=== PATIENT | female | born 1975 | race Two or more races ===

== ENCOUNTER 2018-01-12 15:35 | Inpatient (IN) | payer OTHER ==
[~2018-01-12] VITALS: Ht 162.6 cm; Wt 88.7 kg
[2018-01-12 16:23] LABS: BASOPHILS # (AUTO) 0.06 x10^3/uL (0-0.1); BASOPHILS % (AUTO) 1 % (0-1); EOSINOPHILS # (AUTO) 0.09 x10^3/uL (0-0.4); EOSINOPHILS % (AUTO) 1 % (1-7); LYMPHOCYTES # (AUTO) 1.74 x10^3/uL (1-3.4); LYMPHOCYTES % (AUTO) 15 % (22-44); MD NO; MEAN CORPUSCULAR HEMOGLOBIN 23.2 pg (27.0-34.8); MEAN CORPUSCULAR HGB CONC 31.8 g/dL (32.4-35.8); MEAN CORPUSCULAR VOLUME 72.9 fL (80-100); MEAN PLATELET VOLUME 9.1 fL (7.4-10.4); MONOCYTES # (AUTO) 0.75 x10^3/uL (0.2-0.8); MONOCYTES % (AUTO) 6 % (2-9); NEUTROPHILS # (AUTO) 9.41 x10^3/uL (1.8-6.8); NEUTROPHILS % (AUTO) 78 % (42-75); PLATELET COUNT 235 x10^3/uL (130-400); RED BLOOD COUNT 5.51 x10^6/uL (3.82-5.3); RED CELL DISTRIBUTION WIDTH 15.9 % (9.6-15.2)
[2018-01-12 16:30] LABS: HCG UR SG 1.008 (1.003-1.030)
[2018-01-12 16:31] LABS: CULTURE INDICATED? YES; MICROSCOPIC INDICATED
[2018-01-12 16:47] LABS: ANION GAP 9 mmol/L (5-15); CALCIUM 8.5 mg/dL (8.5-10.1); CHLORIDE 108 mmol/L (98-107)
[2018-01-12 16:51] LABS: ALANINE AMINOTRANSFERASE 37 U/L (12-78); ALBUMIN 3.7 g/dL (3.4-5.0); ALKALINE PHOSPHATASE 65 U/L (45-117); BILIRUBIN,TOTAL 1.3 mg/dL (0.2-1.0); CREATININE 0.75 mg/dL (0.55-1.02); TOTAL PROTEIN 8.4 g/dL (6.4-8.2)
[2018-01-12] MEDS ORDERED: CEFTRIAXONE PMX 1GM/50ML 50 ML IV ONE (19:00)
[2018-01-12] MEDS ORDERED: CEFTRIAXONE PMX 1GM/50ML 50 ML ONE (19:06)
[2018-01-12 20:00] VITALS: BP 116/73
[2018-01-12] MEDS ORDERED: ONDANSETRON 2MG/ML, 2ML IVPush PRN (20:30)
[2018-01-12] MEDS ORDERED: ACETAMINOPHEN 325 MG TABLET PO PRN (20:30)
[2018-01-12] MEDS ORDERED: BISACODYL 10 MG SUPP PR PRN (20:30)
[2018-01-12] MEDS ORDERED: morphine SULFATE 10 MG/ML, 1ML IVPush PRN (20:30)
[2018-01-12] MEDS: SODIUM CHLORIDE 0.9% 1,000 ML IV SCH (21:09)
[2018-01-12] MEDS: CEFOTETAN PMX 1GM/50ML 50 ML IV SCH (21:11)
[2018-01-13 01:47] VITALS: BP 127/83
[2018-01-13 05:36] LABS: ALANINE AMINOTRANSFERASE 31 U/L (12-78); ALBUMIN 3.1 g/dL (3.4-5.0); ANION GAP 7 mmol/L (5-15); CALCIUM 8.7 mg/dL (8.5-10.1); CHLORIDE 111 mmol/L (98-107); CREATININE 0.65 mg/dL (0.55-1.02)
[2018-01-13 05:38] LABS: ALKALINE PHOSPHATASE 57 U/L (45-117); BILIRUBIN,TOTAL 1.1 mg/dL (0.2-1.0); TOTAL PROTEIN 6.9 g/dL (6.4-8.2)
[2018-01-13] MEDS ORDERED: MIDAZOLAM 1 MG/ML, 2ML ONE (05:42)
[2018-01-13] MEDS ORDERED: FENTANYL PF 100 MCG/2ML ONE ×2 (05:42→07:34)
[2018-01-13] MEDS ORDERED: SUCCINYLCHOLINE 20 MG/ML, 10ML ONE (05:42)
[2018-01-13] MEDS ORDERED: DEXAMETHASONE 4 MG/ML, 1ML ONE ×2 (05:42)
[2018-01-13] MEDS ORDERED: PROPOFOL 10 MG/ML, 20ML ONE (05:42)
[2018-01-13] MEDS ORDERED: ROCURONIUM 10MG/ML,5ML ONE (05:43)
[2018-01-13 05:53] LABS: BASOPHILS # (AUTO) 0.03 x10^3/uL (0-0.1); BASOPHILS % (AUTO) 0 % (0-1); EOSINOPHILS # (AUTO) 0.12 x10^3/uL (0-0.4); EOSINOPHILS % (AUTO) 1 % (1-7); LYMPHOCYTES # (AUTO) 2.87 x10^3/uL (1-3.4); LYMPHOCYTES % (AUTO) 31 % (22-44); MD NO; MEAN CORPUSCULAR HEMOGLOBIN 23.8 pg (27.0-34.8); MEAN CORPUSCULAR HGB CONC 32.1 g/dL (32.4-35.8); MEAN CORPUSCULAR VOLUME 73.9 fL (80-100); MEAN PLATELET VOLUME 9.1 fL (7.4-10.4); MONOCYTES # (AUTO) 0.74 x10^3/uL (0.2-0.8); MONOCYTES % (AUTO) 8 % (2-9); NEUTROPHILS # (AUTO) 5.41 x10^3/uL (1.8-6.8); NEUTROPHILS % (AUTO) 59 % (42-75); PLATELET COUNT 217 x10^3/uL (130-400); RED BLOOD COUNT 4.84 x10^6/uL (3.82-5.3); RED CELL DISTRIBUTION WIDTH 16.1 % (9.6-15.2)
[2018-01-13] MEDS ORDERED: ONDANSETRON 2MG/ML, 2ML ONE (06:23)
[2018-01-13] MEDS ORDERED: KETOROLAC 30 MG/1 ML ONE (06:23)
[2018-01-13] MEDS ORDERED: BUPIVACAINE/PF-EPI 0.25% 1:200K INFIL ONE (06:28)
[2018-01-13] MEDS ORDERED: OMNIPAQUE 350 MG/ML, 50 ML BOTTLE IV ONE (06:37)
[2018-01-13] MEDS ORDERED: OMNIPAQUE 350 MG/ML, 50 ML BOTTLE ONE (06:41)
[2018-01-13] MEDS ORDERED: NEOSTIGMINE 1 MG/ML, 10ML ONE (06:42)
[2018-01-13] MEDS ORDERED: GLYCOPYRROLATE 0.4 MG/2 ML, 2ML ONE (06:42)
[2018-01-13] MEDS ORDERED: OXYcodone 5 MG/5 ML ORAL.SOL UDC PO PRN (07:30)
[2018-01-13] MEDS ORDERED: hydrALAzine 20 MG/ML, 1ML IV PRN (07:30)
[2018-01-13] MEDS ORDERED: PROMETHAZINE 25 MG SUPP PR PRN (07:30)
[2018-01-13] MEDS ORDERED: LABETALOL 5MG/ML, 20ML IV PRN (07:30)
[2018-01-13] MEDS ORDERED: MORPHINE SULFATE 4 MG/ML, 1ML IVPush PRN (07:30)
[2018-01-13] MEDS ORDERED: MEPERIDINE/PF 25MG/0.5ML IVPush PRN (07:30)
[2018-01-13] MEDS ORDERED: PROMETHAZINE 25 MG/ML, 1ML IV PRN (07:30)
[2018-01-13] MEDS ORDERED: PROMETHAZINE 25 MG/ML, 1ML IM PRN ×2 (07:30)
[2018-01-13] MEDS ORDERED: ONDANSETRON 2MG/ML, 2ML IV PRN (07:30)
[2018-01-13] MEDS ORDERED: HYDROmorphone 1 MG/ML, 1ML IV PRN (07:30)
[2018-01-13] MEDS ORDERED: PROMETHAZINE 12.5 MG SUPP PR PRN (07:30)
[2018-01-13] MEDS ORDERED: ACETAMINOPHEN 325 MG TABLET PO PRN (07:30)
[2018-01-13] MEDS ORDERED: ONDANSETRON ODT 8 MG PO PRN (07:30)
[2018-01-13] MEDS ORDERED: OXYcodone 5 MG/5 ML ORAL.SOL UDC ONE (07:34)
[2018-01-13] MEDS ORDERED: ACETAMINOPHEN 650 MG/20.3 ML UDC ONE (07:34)
[2018-01-13] MEDS: FENTANYL PF 100 MCG/2ML IV PRN ×2 (07:36→07:45)
[2018-01-13 08:30] VITALS: BP 120/74
[2018-01-13] MEDS: CEFOTETAN PMX 1GM/50ML 50 ML IV SCH ×2 (08:59→21:08)
[2018-01-13] MEDS: SODIUM CHLORIDE 0.9% 1,000 ML IV SCH ×2 (12:05→21:08)
[2018-01-13 14:15] VITALS: BP 107/67
[2018-01-13 19:25] VITALS: BP 115/69
[2018-01-14 00:57] VITALS: BP 106/67
[2018-01-14 07:50] VITALS: BP 119/72
[2018-01-14] MEDS: SODIUM CHLORIDE 0.9% 1,000 ML IV SCH (08:20)
[2018-01-14] MEDS: CEFOTETAN PMX 1GM/50ML 50 ML IV SCH (08:21)
[2018-01-14] MEDS ORDERED: OXYC-302 PO (10:01)
[2018-01-14] MEDS ORDERED: POLY17PO5 PO (10:02)
== END 2018-01-14 12:23 | disposition home or self-care (01) | DRG 418 ==
LOC: ED 16:29 → EDIP 18:45 → 3NE 19:25 → DCLOUNGE 01-14 12:10
PROVIDERS: ADMIT Hospitalist; ATTEND Hospitalist
PROC: BF101ZZ Fluoroscopy of Bile Ducts using Low Osmolar Contrast (ICD-10-PCS; 2018-01-13)
PROC: 0FT44ZZ Resection of Gallbladder, Percutaneous Endoscopic Approach (ICD-10-PCS; principal; 2018-01-13 06:30)
DX: K80.00 Calculus of gallbladder with acute cholecystitis without obstruction (principal); N39.0 Urinary tract infection, site not specified; D50.9 Iron deficiency anemia, unspecified; E80.6 Other disorders of bilirubin metabolism
CPT/HCPCS: 36415; 74300; 76700; 80053; 81001; 81025; 82728; 83540; 83550; 83690; 85025; 87040; 87086; 88304; 99285; G0378; J0696; J1100; J1885; J2250; J2405; J2704; J2710; J3010; Q9967; J0330; J3490; J7030